=== PATIENT | male | born 1995 | race Caucasian/White ===

== ENCOUNTER 2018-04-04 16:28 | Emergency (ER) | payer SELFPAY ==
[2018-04-04 16:40] VITALS: BP 142/83; PULSE 97; RESP 18; TEMP 37.3; O2SAT 98; BMI 24.3
--- NOTE | 2018-04-04 20:22 | ED_ITS ---
HPI - Dizziness <Marlene Christinason PA-C - Last Filed: 04/04/18 22:33> General Chief Complaint: Dizziness Stated Complaint: SEIZURE 4 DAYS AGO,LIGHTHEADED Time Seen by Provider: 04/04/18 20:21 Source: patient Mode of arrival: ambulatory Limitations: no limitations History of Present Illness HPI Narrative: This 23-year-old male comes in due to concern for seizure. He states that 1 week ago just after having sex it seems that he loss consciousness for maybe 15-20 seconds. He states that his girlfriend described his eyes being open but moving, and his body was stiff. When he sat up, he states he had tunnel vision for a 2nd and felt tired. He did not have any bowel or bladder incontinence. He states that since this occurred, he has been going about his usual activities including working as a brazer crawler torch, but his head is ?foggy? and feels like he can't think straight. He states he has a dizzy sensation which he describes as the room or objects moving around him specifically with head movements. He states that he has occasionally had a few skipped heartbeats that make him catch his breath in the past, though none recently. He states that he was feeling well prior to this, denies any medication changes. He does smoke THC regularly that he gets from a store and states he does not use other drugs. He states he had another episode like this in the past where friends told him he had a seizure or episode where he was flopped onto the ground and shaking. He states that he came in today at the insistence of his boss at work. Related Data Home Medications Medication Instructions Recorded Confirmed No Known Home Medications 04/04/18 04/04/18 Review of Systems <Marlene Christianson PA-C - Last Filed: 04/04/18 22:33> Review of Systems All systems reviewed & are unremarkable except as noted in HPI and below Exam <Marlene Christianson PA-C - Last Filed: 04/04/18 22:33> Narrative Exam Narrative: GENERAL APPEARANCE: Patient sitting comfortably, in no distress , appears well. HEENT: PERRL, EOMI, normal TMs and oropharynx NECK: Supple, no masses LUNGS: Clear to auscultation bilaterally. HEART: Rate and rhythm regular without murmur, normal S1 and S2, no S3 or S4. NEUROLOGIC: Alert and oriented aside from date, normal speech, gait and coordination. DTRs 2+ throughout bilateral upper and lower extremities Able to elicit vertigo with Hallpike maneuver MUSCULOSKELETAL: Full Csp AROM, strength 5/5 throughout bilateral upper and lower extremities Initial Vital Signs Initial Vital Signs: Vital Signs Temperature 99.1 F 04/04/18 16:40 Pulse Rate 97 H 04/04/18 16:40 Respiratory Rate 18 04/04/18 16:40 Blood Pressure 142/83 H 04/04/18 16:40 Pulse Oximetry 98 04/04/18 16:40 <Froilan Núñez DO - Last Filed: 04/05/18 04:30> Initial Vital Signs Initial Vital Signs: Vital Signs Temperature 99.1 F 04/04/18 16:40 Pulse Rate 97 H 04/04/18 16:40 Respiratory Rate 18 04/04/18 16:40 Blood Pressure 142/83 H 04/04/18 16:40 Pulse Oximetry 98 04/04/18 16:40 Course <Marlene Christianson PA-C - Last Filed: 04/04/18 22:33> Additional Information: Reviewed lack of acute findings with patient today aside from appearance of benign positional vertigo on exam which improved after administration of meclizine. He has however had a to possible seizure episodes over several months. Given this, he was advised not to drive or work, reiterated multiple times, and should be seen by neurology for further evaluation. Advised this needs to be done prior to him resuming any activities that could be dangerous to himself or anyone else were he to have a seizure. He was referred to Dr. Garcia. He is agreeable with this plan. Orders Ordered: ED Orders 04/04/18 20:35 CT head/brain wo con Stat EKG-12 Lead Stat 04/04/18 20:47 Complete Blood Count AUTO DIFF Stat Comprehensive Metabolic Panel Stat 04/04/18 21:00 Urine Drug Screen, Rapid Stat Discontinued Medications Meclizine HCl (Antivert) 25 mg PO NOW ONE Stop: 04/04/18 20:36 Last Admin: 04/04/18 21:09 Dose: 25 mg Vital Signs - 8 hr 04/04/18 20:38 04/04/18 21:56 Temperature 98.4 F 97.6 F Pulse Rate 72 56 L Respiratory Rate 18 16 Blood Pressure [Left Arm] 138/85 H 136/81 H Pulse Oximetry 99 100 <Froilan Núñez DO - Last Filed: 04/05/18 04:30> Orders Ordered: ED Orders 04/04/18 20:35 CT head/brain wo con Stat EKG-12 Lead Stat 04/04/18 20:47 Complete Blood Count AUTO DIFF Stat Comprehensive Metabolic Panel Stat 04/04/18 21:00 Urine Drug Screen, Rapid Stat Discontinued Medications Meclizine HCl (Antivert) 25 mg PO NOW ONE Stop: 04/04/18 20:36 Last Admin: 04/04/18 21:09 Dose: 25 mg Vital Signs - 8 hr 04/04/18 20:38 04/04/18 21:56 Temperature 98.4 F 97.6 F Pulse Rate 72 56 L Respiratory Rate 18 16 Blood Pressure [Left Arm] 138/85 H 136/81 H Pulse Oximetry 99 100 MDM - Dizziness <Marlene Christianson PA-C - Last Filed: 04/04/18 22:33> Lab Data Attestation: I reviewed the patient's lab results. Result diagrams: 04/04/18 20:47 04/04/18 20:47 Lab Results 04/04/18 04/04/18 04/04/18 Range/Units 20:47 20:47 21:00 WBC 8.8 (4.5-11.0) X10^3/uL RBC 4.61 (4.5-5.9) X10^6/uL Hgb 14.2 (13.5-17.5) g/dL Hct 41.2 (41-53) % MCV 89.4 (80-100) fL MCH 30.8 (26-34) PG MCHC 34.5 (30-36) % RDW 13.1 (11.6-14.8) % Plt Count 207 (150-400) X10^3/uL Neut % (Auto) 54.2 (50-75) % Lymph % (Auto) 30.3 (25-40) % [place] % (Auto) 8.1 (3-14) % Eos % (Auto) 6.2 H (2-4) % Baso % (Auto) 1.2 (0-2) % Neut # (Auto) 4800 (2978-7436) /uL Sodium 141 (137-145) mmol/L Potassium 3.8 (3.4-5.1) mmol/L Chloride 102 (98-107) mmol/L Carbon Dioxide 29 (22-32) mmol/L BUN 18 (9-20) mg/dL Creatinine 1.00 (0.66-1.25) mg/dL Estimated GFR > 60.0 (>60) mL/min BUN/Creatinine Ratio 18.0 (6-22) Glucose 92 (70-100) mg/dL Calcium 9.6 (8.4-10.2) mg/dL Total Bilirubin 0.6 (0.2-1.3) mg/dL AST 26 (17-59) IU/L ALT 32 (21-72) IU/L Alkaline Phosphatase 71 (38-126) U/L Total Protein 7.4 (6.3-8.2) g/dL Albumin 4.8 (3.5-5.0) g/dL Globulin 2.6 (1.7-4.1) g/dL Albumin/Globulin Ratio 1.8 (1.0-2.8) Urine Opiates Screen Negative (Negative) Ur Oxycodone Screen Negative (Negative) Urine Methadone Screen Negative (Negative) Ur Barbiturates Screen Negative (Negative) U Tricyclic Antidepress Negative (Negative) Ur Phencyclidine Scrn Negative (Negative) Ur Amphetamines Screen Negative (Negative) U Methamphetamines Scrn Negative (Negative) Ur MDMA Scrn (Ecstasy) Negative (Negative) U Benzodiazepines Scrn Negative (Negative) Urine Cocaine Screen Negative (Negative) U Marijuana (THC) Screen Positive H (Negative) Imaging Data CT scan - head: Radiologist's impression: View Report History [address] [address] [address] Scan Report Signed Patient: Noe Longo MR#: [id number] : 1995 Acct:[id number] Age/Sex: 23 / M Date of Service: 04/04/18 Loc: ED Accession Number: [id number] Procedure: CT head/brain wo con Ordering Provider: Marlene Christianson P.A-C PROCEDURE: CT HEAD/BRAIN WO CON INDICATIONS: possible seizure, vertigo TECHNIQUE: Noncontrast 4.5 mm thick angled axial sections acquired from the foramen magnum to the vertex, with coronal and sagittal reformats. For radiation dose reduction, the following was used: automated exposure control, adjustment of mA and/or kV according to patient size. COMPARISON: None. FINDINGS: Image quality: Excellent. CSF spaces: Basal cisterns are patent. No extra-axial fluid collections. Ventricles are normal in size and shape. Brain: No midline shift. No intracranial masses or hemorrhage. [place]-white matter interface is normal. Skull and face: Calvarium and visualized facial bones are intact, without suspicious lesions. Sinuses: Visualized sinuses and mastoids are clear. IMPRESSION: 1. No acute intracranial process. Dictated by: Beatrice Avila M.D. on 04/04/2018 at 21:35 Approved by: Beatrice Avila M.D. on 04/04/2018 at 21:36 ECG Data Attestation: I personally reviewed and interpreted this ECG as follows: (Sinus bradycardia, rate 57, normal axis) Prior ECG tracings: not available for review <Froilan Núñez DO - Last Filed: 04/05/18 04:30> Lab Data Lab Results 04/04/18 04/04/18 04/04/18 Range/Units 20:47 20:47 21:00 WBC 8.8 (4.5-11.0) X10^3/uL RBC 4.61 (4.5-5.9) X10^6/uL Hgb 14.2 (13.5-17.5) g/dL Hct 41.2 (41-53) % MCV 89.4 (80-100) fL MCH 30.8 (26-34) PG MCHC 34.5 (30-36) % RDW 13.1 (11.6-14.8) % Plt Count 207 (150-400) X10^3/uL Neut % (Auto) 54.2 (50-75) % Lymph % (Auto) 30.3 (25-40) % [place] % (Auto) 8.1 (3-14) % Eos % (Auto) 6.2 H (2-4) % Baso % (Auto) 1.2 (0-2) % Neut # (Auto) 4800 (6640-7158) /uL Sodium 141 (137-145) mmol/L Potassium 3.8 (3.4-5.1) mmol/L Chloride 102 (98-107) mmol/L Carbon Dioxide 29 (22-32) mmol/L BUN 18 (9-20) mg/dL Creatinine 1.00 (0.66-1.25) mg/dL Estimated GFR > 60.0 (>60) mL/min BUN/Creatinine Ratio 18.0 (6-22) Glucose 92 (70-100) mg/dL Calcium 9.6 (8.4-10.2) mg/dL Total Bilirubin 0.6 (0.2-1.3) mg/dL AST 26 (17-59) IU/L ALT 32 (21-72) IU/L Alkaline Phosphatase 71 (38-126) U/L Total Protein 7.4 (6.3-8.2) g/dL Albumin 4.8 (3.5-5.0) g/dL Globulin 2.6 (1.7-4.1) g/dL Albumin/Globulin Ratio 1.8 (1.0-2.8) Urine Opiates Screen Negative (Negative) Ur Oxycodone Screen Negative (Negative) Urine Methadone Screen Negative (Negative) Ur Barbiturates Screen Negative (Negative) U Tricyclic Antidepress Negative (Negative) Ur Phencyclidine Scrn Negative (Negative) Ur Amphetamines Screen Negative (Negative) U Methamphetamines Scrn Negative (Negative) Ur MDMA Scrn (Ecstasy) Negative (Negative) U Benzodiazepines Scrn Negative (Negative) Urine Cocaine Screen Negative (Negative) U Marijuana (THC) Screen Positive H (Negative) Discharge Plan Departure Patient Disposition: Home, Self-Care Clinical Impression: Benign paroxysmal positional vertigo, Seizure Discharge Date/Time: 04/04/18 21:59 Interventions: ED Discharge Assessment Last Done: 04/04/18 21:59 Instructions: DI for Seizure Disorder -- Adult, DI for Vertigo Activity Restrictions/Additional Instructions: What is going on with you today appears most like positional vertigo as we talked about. You can continue to take meclizine, which is available over-the- counter, 25 mg up to every 6 hr as needed. Remember this can make you sleepy. There are no findings on your testing today of any acute problem, however this does not always show up with seizures. You need to have further testing with a neurologist for this and I have given you the information for Dr. Garcia's office in [place]. As we talked about, you should not be doing anything that could be dangerous such as driving or working, until further testing is done and the neurologist says that it is okay for you to resume. Please call her office 1st thing on Saturday and let them know that you were seen in the emergency room with concern for seizures and need further testing. Prescriptions: No Action No Known Home Medications RF: 0 Referrals: Katey Garcia MD [Non-Staff] - <Froilan Núñez DO - Last Filed: 04/05/18 04:30> Cosign ED Attending Jadaature Attestation: I was immediately available in the department for consultation. Documentation has been reviewed. I agree with assessment and plan.
--- NOTE | 2018-04-04 20:35 | DI.CT.S_ITS ---
PROCEDURE: CT HEAD/BRAIN WO CON INDICATIONS: possible seizure, vertigo TECHNIQUE: Noncontrast 4.5 mm thick angled axial sections acquired from the foramen magnum to the vertex, with coronal and sagittal reformats. For radiation dose reduction, the following was used: automated exposure control, adjustment of mA and/or kV according to patient size. COMPARISON: None. FINDINGS: Image quality: Excellent. CSF spaces: Basal cisterns are patent. No extra-axial fluid collections. Ventricles are normal in size and shape. Brain: No midline shift. No intracranial masses or hemorrhage. [place]-white matter interface is normal. Skull and face: Calvarium and visualized facial bones are intact, without suspicious lesions. Sinuses: Visualized sinuses and mastoids are clear. IMPRESSION: 1. No acute intracranial process. Dictated by: Beatrice Avila M.D. on 04/04/2018 at 21:35 Approved by: Beatrice Avila M.D. on 04/04/2018 at 21:36
[2018-04-04 20:38] VITALS: BP 138/85; PULSE 72; RESP 18; TEMP 36.9; O2SAT 99
[2018-04-04 20:53] LABS: Add Manual Diff / Slide Review NO; Basophils Percent Auto 1.2 % (0-2); Eosinophils Percent Auto 6.2 % (2-4); Hematocrit 41.2 % (41-53); Hemoglobin 14.2 g/dL (13.5-17.5); Lymphocytes Percent Auto 30.3 % (25-40); Mean Corpuscular HGB Conc 34.5 % (30-36); Mean Corpuscular Hemoglobin 30.8 PG (26-34); Mean Corpuscular Volume 89.4 fL (80-100); Monocytes Percent Auto 8.1 % (3-14); Neutrophils Absolute Auto 4800 /uL (3000-5900); Neutrophils Percent Auto 54.2 % (50-75); Platelet Count 207 X10^3/uL (150-400); Red Blood Cell Count 4.61 X10^6/uL (4.5-5.9); Red Cell Distribution Width 13.1 % (11.6-14.8); White Blood Cell Count 8.8 X10^3/uL (4.5-11.0)
[2018-04-04 21:04] LABS: Alanine Aminotransferase 32 IU/L (21-72); Albumin 4.8 g/dL (3.5-5.0); Albumin Globulin Ratio 1.8 (1.0-2.8); Alkaline Phosphatase 71 U/L (38-126); Aspartate Aminotransferase 26 IU/L (17-59); Bilirubin Total 0.6 mg/dL (0.2-1.3); Blood Urea Nitrogen 18 mg/dL (9-20); Calcium 9.6 mg/dL (8.4-10.2); Carbon Dioxide 29 mmol/L (22-32); Chloride 102 mmol/L (98-107); Estimated Glomerular Filt Rate > 60.0 mL/min (>60); Globulin 2.6 g/dL (1.7-4.1); Glucose 92 mg/dL (70-100); HEMOLYSIS < 15 (0-50); Potassium 3.8 mmol/L (3.4-5.1); Sodium 141 mmol/L (137-145); Total Protein 7.4 g/dL (6.3-8.2)
[2018-04-04] MEDS: MECLIZINE HCL 12.5 MG TABLET 25 MG PO (21:09)
[2018-04-04 21:24] LABS: Urine Amphetamines Negative (Negative); Urine Barbiturates Negative (Negative); Urine Benzodiazepines Negative (Negative); Urine Cocaine Negative (Negative); Urine MDMA Negative (Negative); Urine Methadone Negative (Negative); Urine Methamphetamines Negative (Negative); Urine Morphine/Opi cutoff 2000 Negative (Negative); Urine Oxycodone Negative (Negative); Urine Phencyclidine Negative (Negative); Urine Tetrahydrocannabinol Positive (Negative); Urine Tricyclic Antidepressant Negative (Negative)
[2018-04-04 21:56] VITALS: BP 136/81; PULSE 56; RESP 16; TEMP 36.4; O2SAT 100
== END 2018-04-04 21:59 | disposition home or self-care (01) ==
PROVIDERS: Emergency Provider Internal Medicine
DX: H81.10 Benign paroxysmal vertigo, unspecified ear (principal); R56.9 Unspecified convulsions
CPT/HCPCS: 70450; 80053; 80305; 85025; 93005; 99282; 99285